=== PATIENT | female | born 1990 | race Caucasian/White ===

== ENCOUNTER → 2017-06-08 01:10 | Observation (INO) ==
[2017-06-08 00:07] VITALS: BP 93/56
[2017-06-08 00:16] LABS: Bilirubin,Urine Negative (Negative); Blood,Urine Small (Negative); Clarity,Urine Cloudy (Clear); Color,Urine Yellow (Yellow); Glucose,Urine (UA) Normal (Normal); Ketones,Urine Negative (Negative); Leukocyte Esterase,Urine Large (Negative); Nitrite,Urine Negative (Negative); PH,Urine 6.5 pH Units (5.0-8.0); Protein,Urine 100 mg/dL (Neg-Trace); Specific Gravity,Urine 1.011 (1.010-1.025); Urobilinogen,Urine Normal (Normal)
[2017-06-08 00:17] LABS: Bacteria,Urine Many per hpf (None-Few); Hyaline Casts,Urine None Seen per lpf (None-Few); Squamous Epithelial Cell,Urine Many per lpf (None-Few); WBC,Urine 50-100 per hpf (0-3)
--- NOTE | 2017-06-08 00:44 | OB/GYN History & Physical ---
Date of Encounter: 06/08/17 Time of Encounter: 00:25 Assessment and Plan (1) 30 weeks gestation of Status: Acute (2) Right flank pain Status: Acute Trace amount of blood in UA. Patient had positive R CVA tenderness. - Patient being transferred to [facility]. - Recommend U/S. (3) Uterine contractions during Status: Acute - FHR was 145-150. At least two 15x15 accelerations in a 20 minute period. FHR showed good variability. No decelerations. - No contractions indicative of labor. (4) UTI (urinary tract infection) Status: Acute UA indicative of infection. Patient has history of CKD and recurrent UTIs. Currently afebrile. - Patient takes daily prophylactic Cefalexin. 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 Redmond is a 26 year old female at 30 5/7 weeks gestation with a PMH of CKD, LCH (langerhans cell histocytosis), secondary hyperparathyroidism, previous pre-term labor that presents for R flank pain. She says the pain been going on for the past 3-4 days, is sharp, a 7/10 in pain scale, and intermittent. She has also been complaining of bilateral lower abdominal cramping. She says the pain is aggravated by walking and relieved by rest. She denies any heamaturia, but she says she has been having trouble voiding today. She admits to fever and chills earlier today. She admits to good movment. She denies any vaginal fluid leakage or bleeding. She denies any regular contractions. She denies to BALDERAS, but does have some vision blurriness when her pain becomes intense. She denies any chest pain, She admits to nausea and has vomited once earlier today. She denies any hematemesis. She denies any dysuria or diarrhea. She says that she is on a daily prophylactic dose of cefalexin due to recurrent UTIs. Patient has her care at [facility]. Past Med Surg Social Fam HX - Past Medical History Medical history: other Psychiatric history: no psych history - Past Surgical History Surgical History: , other - Social History Smoking Status: Never smoker Smokeless Tobacco Status: No Alcohol use: none Drug use: none - Family History Mother Age: 45 Family Member Ethnicity: Non- Living Status: Still Living Hx Family Cardiac Disorders: No Hx Family Respiratory Disorders: No Hx Family Cancer: No Hx Family GI Disorders: No Hx Family Genitourinary Disorders: No Hx Family Endocrine Disorder: No Hx Family Musculoskeletal Disorders: No Hx Family Neuromuscular Disorders: No Hx Family Neurologic Disorders: No Hx Family HEENT Disorders: No Hx Family Autoimmune Disorders: No Hx Family Reproductive Disorders: No Hx Family Psychosocial Disorders: No Hx Family Medical Disorders: No Obstetrical History - Pregnancies : 5 Para: 4 Term: 3 : 1 Ab's: 0 Livin Medications and Allergies Potassium Chloride [Klor-Con Sprinkle] 40 meq PO TID #90 capsule.er 12/02/15 [Rx ] Sodium Bicarbonate 325 mg PO TID #90 tablet 12/02/15 [Rx] Aspirin [Lo-Dose Aspirin EC] 81 mg PO 02/16/17 [History] cephALEXin [Keflex] 500 mg PO QID #28 capsule 02/16/17 [Rx] 3 Allergy/AdvReac Type Severity Reaction Status Date / Time doxycycline Allergy Rash Verified 06/08/17 01:10 azithromycin AdvReac See Verified 06/08/17 01:10 Comments Oxycodone [From Percocet] AdvReac Itching Verified 06/08/17 01:10 Review of System OB All systems PM: reviewed and no additional remarkable complaints except as stated Exam - Vital Signs Vital signs: Initial Vital Signs Temp Pulse Resp BP 97.9 F 96 16 93/56 06/07/17 23:50 06/07/17 23:50 06/07/17 23:50 06/07/17 23:50 BP: 93/56 HR: 96 FHR: 154 [place]: 20 - Constitutional Constitutional: well developed, well nourished, average body habitus, mild distress - Lungs Respiratory exam: CTAB - Cardiovascular Cardiovascular exam: +S1, +S2 - Abdomen Abdomen: Present: bowel sounds normal, gravid Abdomen detail: right lower quadrant: tenderness (Minor tenderness), left upper quadrant: tenderness - Extremities Extremities exam: full ROM, normal capillary refill, normal inspection, radial pulses palpable and symmetrical Deep Tendon Reflex Grade: 2+ Normal - Comments Comments: Back: Positive R CVA tenderness. Note: patient has cervical cerclage. Results Abnormal lab results Urine Clarity Cloudy (Clear) A 06/07/17 23:58 Urine Protein 100 mg/dL (Neg-Trace) H 06/07/17 23:58 Urine Blood Small (Negative) H 06/07/17 23:58 Ur Leukocyte Esterase Large (Negative) H 06/07/17 23:58 Urine Microscopic RBC 3-5 per hpf (0-3) H 06/07/17 23:58 Urine Microscopic WBC 50-100 per hpf (0-3) H 06/07/17 23:58 Ur Squamous Epith Cells Many per lpf (None-Few) H 06/07/17 23:58 Urine Bacteria Many per hpf (None-Few) H 06/07/17 23:58 Ur Culture Indicated? YES (NO) A 06/07/17 23:58 All other labs normal. - VTE Reasons for not Prescribing Prophylaxis: Treatment not Indicated - Low risk for VTE - Attending Attestation I agree with the documented findings, disposition and treatment plan as described. Prisca Palacios CNM
[~2017-06-08 01:10] MED LIST: Ringers Solution, Lactated 1,000 ML IVC SCH
--- NOTE | 2017-06-08 01:22 | Discharge Summary ---
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 Priority: Secondary Status: Chronic - Discharge Medications Home Medications: Potassium Chloride [Klor-Con Sprinkle] 40 meq PO TID #90 capsule.er 12/02/15 [Rx ] Sodium Bicarbonate 325 mg PO TID #90 tablet 12/02/15 [Rx] Aspirin [Lo-Dose Aspirin EC] 81 mg PO 02/16/17 [History] cephALEXin [Keflex] 500 mg PO QID #28 capsule 02/16/17 [Rx] Allergies/Adverse Reactions: 3 Allergy/AdvReac Type Severity Reaction Status Date / Time doxycycline Allergy Rash Verified 06/08/17 01:10 azithromycin AdvReac See Verified 06/08/17 01:10 Comments Oxycodone [From Percocet] AdvReac Itching Verified 06/08/17 01:10 Data Procedures and tests throughout hospitalization: Laboratory Tests 06/07/17 23:58 Urine Color Yellow Urine Clarity Cloudy A Urine pH 6.5 Ur Specific [place] 1.011 Urine Protein 100 H Urine Glucose (UA) Normal Urine Ketones Negative Urine Blood Small H Urine Nitrite Negative Urine Bilirubin Negative Urine Urobilinogen Normal Ur Leukocyte Esterase Large H Urine Microscopic RBC 3-5 H Urine Microscopic WBC 50-100 H Ur Squamous Epith Cells Many H Urine Bacteria Many H Hyaline Casts None Seen Ur Culture Indicated? YES A Labs on day of discharge: Labs from last 24 hours 06/07/17 23:58 Urine Color Yellow Urine Clarity Cloudy A Urine pH 6.5 Ur Specific [place] 1.011 Urine Protein 100 H Urine Glucose (UA) Normal Urine Ketones Negative Urine Blood Small H Urine Nitrite Negative Urine Bilirubin Negative Urine Urobilinogen Normal Ur Leukocyte Esterase Large H Urine Microscopic RBC 3-5 H Urine Microscopic WBC 50-100 H Ur Squamous Epith Cells Many H Urine Bacteria Many H Hyaline Casts None Seen Ur Culture Indicated? YES A Date of admission: 06/07/17 23:36 Discharging clinician: Julian Kong Anticipated date of discharge: 06/08/17 - Patient Status Disposition: Transfer Other Condition: Fair Functional capacity at discharge: wheelchair bound Overall status at discharge: patient is not back to baseline - Discharge Instructions Instructions: Urinary Tract Infection in Women (DC) Additional Instructions: Keep all appointments with OB doctor LABOR AND DELIVERY DISCHARGE INSTRUCTIONS Signs and Symptoms to be Reported to your Doctor Immediately: * Sudden gush, continuous or intermittent lead of fluid from vagina (note the time of gush and color of fluid) * Onset of bright red vaginal bleeding with or without pain (if you had a vaginal exam during this visit you may notice some dark red spotting. This is normal.) * Lower abdominal cramping or backache that is premenstrual-like feeling. * More than 6 contractions in one hour. * Burning during urination, having to urinate more frequently or pain in your mid-back. * A change in the baby's activity. This could be an increase or decrease in activity. * Severe headache which does not go away with tylenol. * Sudden swelling in the face, hands, arms and/or legs. * Upper abdominal pain - sometimes associated with heartburn or nausea and is not relieved by Maalox, Mylanta or Tums. * Dizziness or blurred vision or visual disturbances (seeing stars/lights). * Kick Counts One hour after a meal, lay down on one side in a quiet place. Count the number of tabby the baby moves during an hour. If less than 6 movements, notify your physician. Diet: *Force fluids - 8-10 tall glasses of fluid per day. May include popsicles and jello. 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 Redmond is a 26 year old female at 30 5/7 weeks gestation with a PMH of CKD, LCH (langerhans cell histocytosis), secondary hyperparathyroidism, previous pre-term labor that presents for R flank pain. She says the pain been going on for the past 3-4 days, is sharp, a 7/10 in pain scale, and intermittent. She has also been complaining of bilateral lower abdominal cramping. She says the pain is aggravated by walking and relieved by rest. She denies any heamaturia, but she says she has been having trouble voiding today. She admits to fever and chills earlier today. She admits to good movment. She denies any vaginal fluid leakage or bleeding. She denies any regular contractions. She denies to BALDERAS, but does have some vision blurriness when her pain becomes intense. She denies any chest pain, She admits to nausea and has vomited once earlier today. She denies any hematemesis. She denies any dysuria or diarrhea. She says that she is on a daily prophylactic dose of cefalexin due to recurrent UTIs. Patient was sent to Labor/delivery triage from the ER to assess for labor. ER said they would accept the patient back once labor was ruled out. Patient displayed at least two 15x15 FHR accelerations and good variability. No decelerations noted. No contractions indicative of labor. Patient's UA was indicative of infection and showed trace amounts of blood. A retroperitoneal u/ s is recommended. Patient will be sent back to the ER. Time Attestation: Total time spent providing and/or coordinating discharge services: Time Spent: Less than 30 minutes Exam - Constitutional Vitals: Temp Pulse Resp BP 97.9 F 96 16 93/56 06/07/17 23:50 06/07/17 23:50 06/07/17 23:50 06/07/17 23:50 General appearance IM: mild distress, A&O X 3, answers questions appropriately - Respiratory Respiratory exam: Present: CTAB - Cardiovascular Cardiovascular exam IM: Present: RRR, +S1, +S2 - GI/Abdominal GI/Abdominal exam IM: normal bowel sounds, soft, tenderness (B/L lower quadrant tenderness) - Extremities Exam Extremities exam IM: Present: full ROM, normal capillary refill, normal inspection, radial pulses palpable and symmetrical. Absent: pedal edema Additional comments: Pedal pulses intact bilaterally. - Other Additional findings: Back: Positive R CVA tenderness. Note: Cervical cerclage. - VTE Reasons for not Prescribing Prophylaxis: Treatment not Indicated - Low risk for VTE
== END | disposition short-term general hospital (02) ==
LOC: 1NENULAB
PROVIDERS: ADMIT Obstetrics & Gynecology; ATTEND Obstetrics & Gynecology

== ENCOUNTER 2020-05-13 20:07 | Inpatient (IN) ==
[2020-05-13] MEDS ORDERED: 0.9 % Sodium Chloride 1,000 ML IVC ONE (20:48)
[2020-05-13] MEDS ORDERED: Ondansetron 4 MG/2 ML VIAL IVP ONE (20:48)
[2020-05-13] MEDS ORDERED: levoFLOXacin 500 MG TABLET PO ONE (21:38)
[2020-05-13 23:35] LABS: Basophils % 0.2 %; Hematocrit 42.6 % (35.3-44.9); Hemoglobin 13.6 g/dL (11.5-15.4); Immature Granulocytes % 0.6 % (0-4); Lymphocytes # 0.7 K/mcL (0.6-4.6); Lymphocytes % 3.6 %; Mean Corpuscular HGB Conc 31.9 g/dL (31.6-35.5); Mean Corpuscular Hemoglobin 29.9 pg (28.0-33.3); Mean Corpuscular Volume 93.6 fL (83.0-100.0); Mean Platelet Volume 10.8 fL (9.4-12.4); Monocytes # 1.1 K/mcL (0.0-1.3); Monocytes % 5.8 %; Neutrophils # 17.4 K/mcL (1.6-8.9); Platelet Count 143 K/mcL (140-400); Red Blood Count 4.55 M/mcL (3.82-4.97); Red Cell Distribution Width 13.5 % (11.5-14.5); Segmented Neutrophils % 89.8 %; White Blood Count 19.3 K/mcL (4.3-11.1)
[2020-05-13 23:45] LABS: D-Dimer 978 ng/mLFEU (0-500)
[2020-05-13] MEDS ORDERED: Isovue-370 500 ML BOTTLE IVP ONE (23:48)
[2020-05-13 23:57] LABS: Alanine Aminotransferase 10 Units/L (7-52); Albumin 3.7 g/dL (3.5-5.7); Albumin/Globulin Ratio 0.7 (1.1-2.2); Alkaline Phosphatase 63 Units/L (34-104); Aspartate Amino Transferase 11 Units/L (13-39); BUN/Creatinine Ratio 10 (6-26); Bilirubin,Total 0.5 mg/dL (0.3-1.0); Blood Urea Nitrogen 32 mg/dL (6-20); Calcium 8.8 mg/dL (8.6-10.3); Carbon Dioxide 17 mEq/L (23-29); Chloride 104 mEq/L (98-107); Globulin 5.1 g/dL (2.4-3.5); Glucose 97 mg/dL (70-105); Osmolality,Calculated 281 (280-300); Potassium 3.7 mEq/L (3.5-5.1); Sodium 132 mEq/L (136-145); Total Protein 8.8 g/dL (6.4-8.9); Troponin I < 0.03 ng/mL (< 0.04); eGFR For African Americans 21 (> 60); eGFR For Non-African Americans 18 (> 60)
[2020-05-14] MEDS ORDERED: *HR* Heparin 5,000 UNIT/ML VIAL IVP PRN ×2 (00:55)
[2020-05-14] MEDS ORDERED: *HR* Heparin 5,000 UNIT/ML VIAL IVP ONE (00:55)
[2020-05-14 01:11] LABS: Heparin anti-factor XA UFH < 0.04 IU/mL (0.30-0.70)
[2020-05-14] MEDS: Heparin 25,000UNIT/250ML 1/2NS 25,000 UNIT/250 ML IV.SOLN IVC SCH ×2 (01:40→20:52)
[2020-05-14 02:17] LABS: Adenovirus Not Detected (Not Detect); Bordetella Pertussis Not Detected (Not Detect); Chlamydophila pneumoniae Not Detected (Not Detect); Coronavirus 229E Not Detected (Not Detect); Coronavirus HKU1 Not Detected (Not Detect); Coronavirus NL63 Not Detected (Not Detect); Coronavirus OC43 Not Detected (Not Detect); Human Metapneumovirus Not Detected (Not Detect); Human Rhinovirus/Enterovirus DETECTED (Not Detect); Influenza A Subtype 2009 H1 Not Detected (Not Detect); Influenza B Not Detected (Not Detect); Mycoplasma pneumoniae Not Detected (Not Detect); Parainfluenza Virus 1 Not Detected (Not Detect); Parainfluenza Virus 2 Not Detected (Not Detect); Parainfluenza Virus 3 Not Detected (Not Detect); Parainfluenza Virus 4 Not Detected (Not Detect); Respiratory Syncytial Virus Not Detected (Not Detect); SARS-CoV-2 Not Detected (Not Detect)
[2020-05-14] MEDS ORDERED: Ondansetron 4 MG/2 ML VIAL IVP PRN (02:36)
[2020-05-14] MEDS ORDERED: Naloxone 0.4 MG/ML INJ IVP PRN (02:36)
[2020-05-14] MEDS ORDERED: Ringers Solution, Lactated 1,000 ML IVC SCH (02:45)
[2020-05-14] MEDS ORDERED: Acetaminophen 325 MG TABLET PO PRN (04:17)
[2020-05-14] MEDS: 0.9 % Sodium Chloride 1,000 ML IVC SCH ×2 (04:55→20:47)
[2020-05-14] MEDS ORDERED: Ipratropium/Albuterol Neb 3 ML IH PRN (05:37)
[2020-05-14 08:19] LABS: INR 1.6; Prothrombin Time 18.1 Seconds (9.4-12.1)
[2020-05-14 08:36] LABS: Albumin 3.5 g/dL (3.5-5.7); Albumin/Globulin Ratio 0.8 (1.1-2.2); Bilirubin,Total 0.4 mg/dL (0.3-1.0); Calcium 8.4 mg/dL (8.6-10.3); Globulin 4.2 g/dL (2.4-3.5); Magnesium 1.6 mg/dL (1.6-2.6); Phosphorous 4.3 mg/dL (2.7-4.5); Potassium 3.2 mEq/L (3.5-5.1); Total Protein 7.7 g/dL (6.4-8.9)
[2020-05-14 10:26] LABS: Basophils % 0.1 %; Eosinophils % 0.1 %; Hematocrit 39.4 % (35.3-44.9); Hemoglobin 12.8 g/dL (11.5-15.4); Immature Granulocytes % 0.8 % (0-4); Lymphocytes # 0.8 K/mcL (0.6-4.6); Lymphocytes % 4.4 %; Mean Corpuscular HGB Conc 32.5 g/dL (31.6-35.5); Mean Corpuscular Hemoglobin 30.7 pg (28.0-33.3); Mean Corpuscular Volume 94.5 fL (83.0-100.0); Mean Platelet Volume 10.7 fL (9.4-12.4); Monocytes # 1.1 K/mcL (0.0-1.3); Monocytes % 6.1 %; Neutrophils # 15.9 K/mcL (1.6-8.9); Platelet Count 126 K/mcL (140-400); Red Blood Count 4.17 M/mcL (3.82-4.97); Red Cell Distribution Width 13.6 % (11.5-14.5); Segmented Neutrophils % 88.5 %; White Blood Count 17.9 K/mcL (4.3-11.1)
[2020-05-14] MEDS ORDERED: 0.9 % Sodium Chloride 1,000 ML IVC SCH (18:00)
[2020-05-14] MEDS ORDERED: levoFLOXacin 750 MG/150 ML 750 MG/150 ML BAG IVPB SCH (23:00)
[2020-05-15 01:54] LABS: Basophils % 0.2 %; Lymphocytes % 8.3 %; Red Cell Distribution Width 13.6 % (11.5-14.5)
[2020-05-15 01:55] LABS: Calcium 8.4 mg/dL (8.6-10.3); Magnesium 1.9 mg/dL (1.6-2.6); Potassium 3.6 mEq/L (3.5-5.1)
[2020-05-15 01:56] LABS: Eosinophils # 0.2 K/mcL (0.0-0.6); Eosinophils % 1.6 %; Hematocrit 38.4 % (35.3-44.9); Hemoglobin 12.1 g/dL (11.5-15.4); Immature Granulocytes % 0.2 % (0-4); Immature Platelets 4.5 % (1.1-6.1); Mean Corpuscular HGB Conc 31.5 g/dL (31.6-35.5); Mean Corpuscular Hemoglobin 30.1 pg (28.0-33.3); Mean Corpuscular Volume 95.5 fL (83.0-100.0); Mean Platelet Volume 10.7 fL (9.4-12.4); Monocytes # 0.7 K/mcL (0.0-1.3); Monocytes % 5.4 %; Neutrophils # 10.2 K/mcL (1.6-8.9); Platelet Count 128 K/mcL (140-400); Red Blood Count 4.02 M/mcL (3.82-4.97); Segmented Neutrophils % 84.3 %; White Blood Count 12.1 K/mcL (4.3-11.1)
[2020-05-15] MEDS ORDERED: *HR* FentaNYL (PF) 100 MCG/2 ML VIAL ONE (13:45)
[2020-05-15] MEDS ORDERED: *HR* Propofol 200 MG/20 ML VIAL IVP ONE (13:46)
[2020-05-15] MEDS ORDERED: Ondansetron 4 MG/2 ML VIAL ONE (13:51)
[2020-05-15] MEDS ORDERED: Dexamethasone 4 MG/ML VIAL ONE (13:51)
[2020-05-15] MEDS ORDERED: Ondansetron 4 MG/2 ML VIAL IVP PRN (13:55)
[2020-05-15] MEDS ORDERED: *HR* HYDROmorphone PF 0.5 MG/0.5 ML SYRINGE IVP PRN (13:55)
[2020-05-15] MEDS ORDERED: *HR* Promethazine 25 MG/ML VIAL IVP PRN (13:55)
[2020-05-15] MEDS ORDERED: *HR* Succinylcholine 200 MG/10 ML VIAL IVP ONE (15:10)
[2020-05-15] MEDS ORDERED: *HR* EPINEPHrine 1 MG/10 ML SYRINGE INTRATRACH PRN (15:11)
[2020-05-15 16:23] LABS: Source of Body Fluid RUL BAL
[2020-05-15] MEDS: Furosemide 40 MG TABLET PO SCH (20:20)
[2020-05-15 21:37] LABS: Appearance of Body Fluid Cloudy (Clear); Volume of Body Fluid 24 mL
[2020-05-15] MEDS ORDERED: *HR* Heparin 5,000 UNIT/ML VIAL SQ SCH (22:00)
[2020-05-16 01:38] LABS: Hematocrit 38.8 % (35.3-44.9); Hemoglobin 12.5 g/dL (11.5-15.4); Immature Granulocytes % 0.3 % (0-4); Lymphocytes # 0.4 K/mcL (0.6-4.6); Lymphocytes % 4.8 %; Mean Corpuscular HGB Conc 32.2 g/dL (31.6-35.5); Mean Corpuscular Hemoglobin 30.1 pg (28.0-33.3); Mean Corpuscular Volume 93.5 fL (83.0-100.0); Mean Platelet Volume 10.6 fL (9.4-12.4); Monocytes # 0.2 K/mcL (0.0-1.3); Monocytes % 2.1 %; Neutrophils # 7.2 K/mcL (1.6-8.9); Platelet Count 181 K/mcL (140-400); Red Blood Count 4.15 M/mcL (3.82-4.97); Red Cell Distribution Width 13.6 % (11.5-14.5); Segmented Neutrophils % 92.8 %; White Blood Count 7.7 K/mcL (4.3-11.1)
[2020-05-16 01:57] LABS: Calcium 8.9 mg/dL (8.6-10.3); Magnesium 1.9 mg/dL (1.6-2.6); Potassium 3.9 mEq/L (3.5-5.1)
[2020-05-16] MEDS ORDERED: Cholecalciferol (D-3) 1,000 UNIT (25MCG) TABLET PO SCH (09:00)
[2020-05-16] MEDS: Furosemide 40 MG TABLET PO SCH (10:20)
[2020-05-16 11:56] VITALS: BP 107/77
[2020-05-18 09:25] LABS: Angiotensin Converting Enzyme 28 U/L (9-67)
[2020-05-18 12:22] LABS: ANA IgG by ELISA DETECTED (None Detected)
[2020-05-18 15:56] LABS: QuantiFERON Mitogen minus NIL 0.82 IU/mL
[2020-05-18 17:30] LABS: A.galactomannan Ag Index 0.04
[2020-05-19 06:58] LABS: Serine Protease-3 Antibody 3 AU/mL (0-19)
[2020-05-19 06:59] LABS: Aspergillus fumigatus IgE <0.10 kU/L (<=0.34); QuantiFERON NIL 0.01 IU/mL; QuantiFERON-TB Gold In-Tube NEGATIVE (Negative)
[2020-05-19 08:21] LABS: ANA HEp-2 IgG IFA DETECTED (<1:80); Anti Nuclear Ab Pattern SPECKLED
== END 2020-05-16 15:16 | disposition home or self-care (01) | DRG 871 ==
LOC: EMEROOARM 20:07 → 3BNU 20:07 → SUATTDRO 05-14 02:22 → 3BNU 05-14 03:21
PROVIDERS: ADMIT Family Medicine; ATTEND Internal Medicine